=== PATIENT | female | born 1960 | race Caucasian/White ===

== ENCOUNTER 2019-05-24 18:52 | Observation (INO) ==
[2019-05-24] MEDS ORDERED: SODIUM CHLORIDE 0.9% 500 ML IV SCH (19:00)
--- NOTE | 2019-05-24 19:04 | Emergency Department Note ---
History of Present Illness General Chief complaint: Arrhythmia/Palpitations Stated complaint: CARDIAC SX History of Present Illness The patient is a 58-year-old female who presented to the emergency department for an evaluation of chest discomfort and palpitations. The patient states that she has been having intermittent symptoms over the last 4 to 5 days which have included palpitations fast heart rate as well as skipping beats. The patient states he also had a fullness in her chest which she describes as more of a pressure. She denies that it was actual chest pain. The patient states that she was seen previously for this and was found to have PVCs. The patient denies having any shortness of breath at this time. She states that her symptoms are worsened at rest and sometimes improved with some exertion. She denies having any nausea or vomiting or recent illnesses. She states that she has had low potassium in the past but it was not associated with irregular heartbeat. The patient called her primary care physician and was set up with an appointment for this but was not seen by a provider today. She denies having any recent falls. She denies having any swelling in her legs. Home Medications Home Medications Medication Instructions Recorded Confirmed Type cyclobenzaprine 10 mg PO HS PRN 05/24/19 05/24/19 History fexofenadine [Aleta Allergy] 180 mg PO DAILY PRN 05/24/19 05/24/19 History fluticasone propionate 2 spray INTRANASAL DAILY PRN 05/24/19 05/24/19 History fluticasone propionate [Flovent 2 puff INHALATION BID PRN 05/24/19 05/24/19 History HFA] multivitamin 1 tab PO DAILY 05/24/19 05/24/19 History potassium chloride [Klor-Con M20] 20 meq PO DAILY 05/24/19 05/24/19 History tramadol 50 mg PO BID PRN 05/24/19 05/24/19 History triamterene-hydrochlorothiazid 0.5 tab PO DAILY 05/24/19 05/24/19 History Allergies Allergy/AdvReac Type Severity Reaction Status Date / Time No Known Allergies Allergy Verified 05/24/19 19:41 Past Med/Surg History Medical History Hypertension Surgical History History of carpal tunnel surgery History of delivery Status post trigger finger release Family History Other No significant family history Social History current occupational status: employed Feels Safe at Home: Yes Smoking Status: Never smoker Hx Alcohol Use: Yes Review of Systems See HPI for pertinent positives & negatives. and A total of 10 systems reviewed and were otherwise negative Additional history was obtained from the prehospital personnel. Physical Exam Vital Signs Vital Signs - 24 hr 05/24/19 18:55 05/24/19 18:57 05/24/19 19:05 Temperature 36.9 C Temperature Source Oral Pulse Rate 84 90 86 Pulse Rate from SpO2 Sensor 78 80 Respiratory Rate 15 17 20 Respiratory Effort / Characteristics Non-Labored Spontaneous Respiratory Depth Normal Blood Pressure 173/101 H 173/101 H 134/84 Blood Pressure Mean 127 125 91 Blood Pressure Position Sitting Pulse Oximetry 96 98 94 Oxygen Delivery Method Room Air Sepsis Recent Fever Within 48 Hours No Sepsis Action Taken by Nursing No Action Required 05/24/19 19:30 05/24/19 20:00 Temperature Temperature Source Pulse Rate 75 77 Pulse Rate from SpO2 Sensor 74 74 Respiratory Rate 14 15 Respiratory Effort / Characteristics Respiratory Depth Blood Pressure 124/69 142/68 H Blood Pressure Mean 90 86 Blood Pressure Position Pulse Oximetry 95 96 Oxygen Delivery Method Sepsis Recent Fever Within 48 Hours Sepsis Action Taken by Nursing GENERAL: Patient is awake alert in no acute distress patient is resting comfortably and showing no signs of anxiety EYES: The conjunctivae are clear. The pupils are round and reactive. EARS, NOSE, MOUTH AND THROAT: The nose is without any evidence of any deformity. Mucous membranes are moist. Tongue is midline. NECK: The neck is nontender and supple. RESPIRATORY: Normal respiratory effort is noted there is no evidence of wheezing rhonchi or rales CARDIOVASCULAR: Regular rate and rhythm noted there no murmurs rubs or gallops normal S1 normal S2. GASTROINTESTINAL: The abdomen is soft. Abdomen is nontender. MUSCULOSKELETAL/EXTREMITIES: There is no evidence of gross deformity full range of motion is noted in the hips and shoulders. SKIN: There is no obvious evidence of any rash. There are no petechiae, pallor or cyanosis noted. NEUROLOGIC: Patient is awake alert and oriented x3 strength is symmetric patellar reflexes are 2+ bilaterally Course Course 1830: I have reevaluated the patient and discussed her laboratory and radiographic studies. 1840: I discussed this case with the on-call [facility] hospitalist, Dr. Kruger. He is agreed to evaluate the patient in the emergency department for further management and disposition. Administered Medications Potassium Chloride (K Jero / Wtr) 10 meq in 100 mls @ 100 mls/hr IV Q1H HAILY Stop: 05/24/19 21:29 Last Admin: 05/24/19 19:52 Dose: 100 mls/hr Documented by: [id number] Discontinued Medications Sodium Chloride (Nss) 500 mls @ 999 mls/hr IV .Q31M HAILY Stop: 05/24/19 19:30 Last Infusion: 05/24/19 20:04 Dose: 0 mls/hr Documented by: [id number] Admin: 05/24/19 19:22 Dose: 999 mls/hr Documented by: [id number] Potassium Chloride (Klor-Con M10) 20 meq PO NOW STA Stop: 05/24/19 19:30 Last Admin: 05/24/19 19:52 Dose: 20 meq Documented by: [id number] Medical Decision Making Differential Diagnosis Etiologies such as ectopy, cardiac dysrhythmia, electrolyte abnormality, t hyroid dysfunction, pulmonary embolism, infection, gastrointestinal, as well as others were entertained. Medical Records Attestation: I reviewed the patient's medical records. Home Medications Current Medication List: was personally reviewed by me Laboratory Data Attestation: I reviewed the patient's lab results. Result diagrams: 05/24/19 18:28 05/24/19 18:28 Lab Results 05/24/19 05/24/19 05/24/19 Range/Units 18:28 18:28 19:04 WBC 7.62 (4.8-10.8) K/uL RBC 5.55 H (4.2-5.4) M/uL Hgb 17.0 H (12.0-16.0) g/dL Hct 48.3 H (37-47) % MCV 87.0 (80-100) fL MCH 30.6 (25-34) pg MCHC 35.2 (32-36) g/dL RDW Std Deviation 41.3 (36.4-46.3) fL RDW Coeff of Mukul 12.9 (11.5-14.5) % Plt Count 300 (130-400) K/uL MPV 11.3 H (7.4-10.4) fL Immature Gran % (Auto) 0.3 % Neut % (Auto) 54.1 % Lymph % (Auto) 35.2 % [place] % (Auto) 7.3 % Eos % (Auto) 2.8 % Baso % (Auto) 0.3 % Immature Gran # (Auto) 0.02 (0.00-0.02) K/uL Neut # (Auto) 4.13 (1.4-6.5) K/uL Lymph # (Auto) 2.68 (1.2-3.4) K/uL [place] # (Auto) 0.56 (0.11-0.59) K/uL Eos # (Auto) 0.21 (0-0.5) K/uL Baso # (Auto) 0.02 (0-0.2) K/uL PT (9.0-12.0) Seconds INR (0.9-1.1) APTT (21.0-31.0) Seconds PTT Ratio Sodium 136 (136-145) mmol/L Potassium 2.9 L (3.5-5.1) mmol/L Chloride 99 (98-107) mmol/L Carbon Dioxide 31 (21-32) mmol/L Anion Gap 6.0 (3-11) BUN 23 H (7-18) mg/dl Creatinine 1.17 (0.6-1.2) mg/dl Est Cr Clr Drug Dosing 66.0 ml/min Est GFR ( Amer) 60.3 Est GFR (Non-Af Amer) 52.0 BUN/Creatinine Ratio 19.6 (10-20) Glucose 111 H (70-99) mg/dl Calcium 10.3 H (8.5-10.1) mg/dl Magnesium 2.0 (1.8-2.4) mg/dl Total Bilirubin 0.5 (0.2-1) mg/dl AST 33 (15-37) U/L ALT 53 (12-78) U/L Alkaline Phosphatase 100 (45-117) U/L Troponin I < 0.015 (0-0.045) ng/ml Total Protein 9.1 H (6.4-8.2) gm/dl Albumin 4.4 (3.4-5.0) gm/dl Globulin 4.7 H (2.5-4.0) gm/dl Albumin/Globulin Ratio 0.9 (0.9-2) TSH 4.190 (0.300-4.500) uIu/ml Urine Color Yellow Urine Appearance Clear (Clear) Urine pH 6.0 (4.5-7.5) Ur Specific [place] 1.006 (1.000-1.030) Urine Protein Negative (Negative) Urine Glucose (UA) Negative (Negative) Urine Ketones Negative (Negative) Urine Blood Negative (Negative) Urine Nitrite Negative (Negative) Urine Bilirubin Negative (Negative) Urine Urobilinogen Negative (Negative) Ur Leukocyte Esterase 1+ H (Negative) Urine WBC (Auto) 5-10 H (0-5) /hpf Urine RBC (Auto) 0-4 (0-4) /hpf U Hyaline Cast (Auto) 1-5 (0-5) /lpf U Epithel Cells (Auto) >30 H (0-5) /lpf Urine Bacteria (Auto) Negative (Negative) 05/24/19 Range/Units 19:14 WBC (4.8-10.8) K/uL RBC (4.2-5.4) M/uL Hgb (12.0-16.0) g/dL Hct (37-47) % MCV (80-100) fL MCH (25-34) pg MCHC (32-36) g/dL RDW Std Deviation (36.4-46.3) fL RDW Coeff of Mukul (11.5-14.5) % Plt Count (130-400) K/uL MPV (7.4-10.4) fL Immature Gran % (Auto) % Neut % (Auto) % Lymph % (Auto) % [place] % (Auto) % Eos % (Auto) % Baso % (Auto) % Immature Gran # (Auto) (0.00-0.02) K/uL Neut # (Auto) (1.4-6.5) K/uL Lymph # (Auto) (1.2-3.4) K/uL [place] # (Auto) (0.11-0.59) K/uL Eos # (Auto) (0-0.5) K/uL Baso # (Auto) (0-0.2) K/uL PT 10.7 (9.0-12.0) Seconds INR 1.0 (0.9-1.1) APTT 27.0 (21.0-31.0) Seconds PTT Ratio 1.0 Sodium (136-145) mmol/L Potassium (3.5-5.1) mmol/L Chloride (98-107) mmol/L Carbon Dioxide (21-32) mmol/L Anion Gap (3-11) BUN (7-18) mg/dl Creatinine (0.6-1.2) mg/dl Est Cr Clr Drug Dosing ml/min Est GFR ( Amer) Est GFR (Non-Af Amer) BUN/Creatinine Ratio (10-20) Glucose (70-99) mg/dl Calcium (8.5-10.1) mg/dl Magnesium (1.8-2.4) mg/dl Total Bilirubin (0.2-1) mg/dl AST (15-37) U/L ALT (12-78) U/L Alkaline Phosphatase (45-117) U/L Troponin I (0-0.045) ng/ml Total Protein (6.4-8.2) gm/dl Albumin (3.4-5.0) gm/dl Globulin (2.5-4.0) gm/dl Albumin/Globulin Ratio (0.9-2) TSH (0.300-4.500) uIu/ml Urine Color Urine Appearance (Clear) Urine pH (4.5-7.5) Ur Specific [place] (1.000-1.030) Urine Protein (Negative) Urine Glucose (UA) (Negative) Urine Ketones (Negative) Urine Blood (Negative) Urine Nitrite (Negative) Urine Bilirubin (Negative) Urine Urobilinogen (Negative) Ur Leukocyte Esterase (Negative) Urine WBC (Auto) (0-5) /hpf Urine RBC (Auto) (0-4) /hpf U Hyaline Cast (Auto) (0-5) /lpf U Epithel Cells (Auto) (0-5) /lpf Urine Bacteria (Auto) (Negative) Imaging Data Radiologist's Impression: SINGLE VIEW CHEST CLINICAL HISTORY: Generalized weakness. FINDINGS: An AP, portable, upright chest radiograph is compared to study dated 10/05/2014. The examination is degraded by portable technique, large body habitu s, and patient rotation. The cardiomediastinal silhouette is unremarkable. There is mild elevation of right hemidiaphragm and bibasilar atelectasis. No airspace consolidation or large pleural effusion is identified. No pneumothorax is seen. The skeletal structures are osteopenic. The bony thorax is grossly intact. IMPRESSION: No active disease in the chest. ACT 112: Negative or not required by law. Electronically signed by: Vernon Galvan M.D. 05/24/2019 7:17 PM ECG Data Attestation: I personally reviewed and interpreted this ECG as follows: Indication: + palpitations Rate (beats per minute): 85 Additional Comments: EKG revealed normal sinus rhythm 85 bpm. PVCs were noted. There was diffuse T wave flattening noted. Inferior and lateral ST depressions are noted. No previous EKG was available. Blood Pressure Blood Pressure Findings: Elevated blood pressure Blood Pressure Disposition: further management by hospitalist MDM Narrative The patient is a 58-year-old female who presented to the emergency department by ambulance for an evaluation of chest discomfort and palpitations. The patient states that she has been having palpitations over the last few days. She started having dizziness and palpitations while she was driving. The patient had to pull out operator her car because of such severe symptoms and then called 911. The patient arrived via ambulance. She was noted to have PVCs which is not new for her. She also states that she had racing heartbeat at one point. She also complains of chest pressure but not specifically chest pain. The patient did appear to have abnormalities on her EKG which could be related to ischemia but also could be related to the degree of hypokalemia noted on her laboratory studies. The patient was treated with IV fluids as well as IV potassium. She was also given oral potassium replacement. She was reevaluated multiple times. She was still having some degree of discomfort. She was treated with aspirin in the emergency department. Because of her findings I discussed her case with the on-call [facility] hospitalist group. They have agreed to evaluate the patient in the emergency department for further management and disposition. Impression & Plan Chest pain, Palpitations, Ventricular premature beats, Hypokalemia Discharge Plan Visit Data Chief Complaint: Arrhythmia/Palpitations Stated Complaint: CARDIAC SX ED Provider: Mario Glass Discharge Problem: Chest pain, Palpitations, Ventricular premature beats, Hypokalemia Patient Disposition: Being Evaluated by Hospitalist Condition: Good Forms Stand Alone Forms: [facility] [employer] Prescriptions Prescriptions: No Action cyclobenzaprine 10 mg tablet 10 mg PO HS PRN (Reason: Muscle Spasm) RF: 0 fexofenadine [Aleta Allergy] 180 mg Tablet 180 mg PO DAILY PRN (Reason: Allergy Symptoms) RF: 0 tramadol 50 mg tablet 50 mg PO BID PRN (Reason: Pain) RF: 0 triamterene-hydrochlorothiazid 75-50 mg tablet 0.5 tab PO DAILY RF: 0 fluticasone propionate 50 mcg/actuation spray,suspension 2 spray INTRANASAL DAILY PRN (Reason: Allergy Symptoms) RF: 0 Flovent HFA 110 mcg/actuation HFA aerosol inhaler 2 puff inhalation BID PRN (Reason: Shortness Of Breath) RF: 0 multivitamin Tablet,Chewable 1 tab PO DAILY RF: 0 potassium chloride [Klor-Con M20] 20 mEq tablet,ER particles/crystals 20 meq PO DAILY RF: 0 Referrals Referrals: Giana Tse MD [Primary Care Provider] -
[2019-05-24 19:09] LABS: Red Blood Count 5.55 M/uL (4.2-5.4); White Blood Count 7.62 K/uL (4.8-10.8)
[2019-05-24 19:10] LABS: Basophils # (auto) 0.02 K/uL (0-0.2); Basophils % (auto) 0.3 %; Eosinophils # (auto) 0.21 K/uL (0-0.5); Eosinophils % (auto) 2.8 %; Hematocrit (blood only) 48.3 % (37-47); Immature Granulocytes # (auto) 0.02 K/uL (0.00-0.02); Immature Granulocytes % (auto) 0.3 %; Lymphocytes # (auto) 2.68 K/uL (1.2-3.4); Lymphocytes % (auto) 35.2 %; Mean Corpuscular Hemoglobin 30.6 pg (25-34); Mean Corpuscular Hgb Conc 35.2 g/dL (32-36); Mean Platelet Volume 11.3 fL (7.4-10.4); Monocytes # (auto) 0.56 K/uL (0.11-0.59); Monocytes % (auto) 7.3 %; Neutrophils # (auto) 4.13 K/uL (1.4-6.5); Neutrophils % (auto) 54.1 %; Platelet Count 300 K/uL (130-400); RDW Coefficient of Variation 12.9 % (11.5-14.5); RDW Standard Deviation 41.3 fL (36.4-46.3)
--- NOTE | 2019-05-24 19:18 | XRay Report ---
SINGLE VIEW CHEST CLINICAL HISTORY: Generalized weakness. FINDINGS: An AP, portable, upright chest radiograph is compared to study dated 10/05/2014. The examina tion is degraded by portable technique, large body habitus, and patient rotation. The cardiomediastin al silhouette is unremarkable. There is mild elevation of right hemidiaphragm and bibasilar atelectas is. No airspace consolidation or large pleural effusion is identified. No pneumothorax is seen. The s keletal structures are osteopenic. The bony thorax is grossly intact. IMPRESSION: No active disease in the chest. ACT 112: Negative or not required by law. Electronically signed by: Vernon Galvan M.D. 05/24/2019 7:17 PM
[2019-05-24 19:25] LABS: Alanine Aminotransferase 53 U/L (12-78); Albumin Level 4.4 gm/dl (3.4-5.0); Aspartate Aminotransferase 33 U/L (15-37); BUN Creatinine Ratio 19.6 (10-20); Blood Urea Nitrogen 23 mg/dl (7-18); Calcium 10.3 mg/dl (8.5-10.1); Carbon Dioxide 31 mmol/L (21-32); Chloride 99 mmol/L (98-107); Est GFR (African American) 60.3; Glucose 111 mg/dl (70-99); Potassium 2.9 mmol/L (3.5-5.1); Sodium 136 mmol/L (136-145)
[2019-05-24] MEDS ORDERED: POTASSIUM CHLORIDE 10 MEQ TABCR PO STA (19:29)
[2019-05-24 19:36] LABS: Albumin Globulin Ratio 0.9 (0.9-2); Alkaline Phosphatase 100 U/L (45-117); Bilirubin,Total 0.5 mg/dl (0.2-1); Globulin 4.7 gm/dl (2.5-4.0); Total Protein 9.1 gm/dl (6.4-8.2); Troponin I < 0.015 ng/ml (0-0.045)
[2019-05-24 19:37] LABS: Prothrombin Time 10.7 Seconds (9.0-12.0)
[2019-05-24 19:45] LABS: Appearance Urine Clear (Clear); Bacteria Urine Automated Negative (Negative); Bilirubin Urine Negative (Negative); Blood Urine Negative (Negative); Color Urine Yellow; Epithelial Cell Urine Auto >30 /lpf (0-5); Glucose Urine UA Negative (Negative); Ketones Urine Negative (Negative); Leukocyte Esterase Urine 1+ (Negative); Nitrite Urine Negative (Negative); Protein Urine Negative (Negative); RBC Urine Automated 0-4 /hpf (0-4); Specific Gravity Urine 1.006 (1.000-1.030); Urobilinogen Urine Negative (Negative)
[2019-05-24] MEDS: POTASSIUM CHLORIDE / WTR 10 MEQ/100 ML PLCT IV SCH ×2 (19:52→23:46)
[2019-05-24] MEDS ORDERED: POTASSIUM CHLORIDE 20 MEQ TABCR PO STA ×2 (20:29→23:02)
[2019-05-24] MEDS ORDERED: METOPROLOL TARTRATE 25 MG TAB PO STA (20:29)
[2019-05-24] MEDS ORDERED: ASPIRIN CHEW 324 MG ONE (20:46)
[2019-05-24] MEDS ORDERED: ASPIRIN CHEW 324 MG PO STA (20:47)
[2019-05-24 21:05] LABS: D Dimer 270 ug/L FEU (0-500)
--- NOTE | 2019-05-24 21:37 | History & Physical Report ---
Date of Service May 24, 2019 Assessment & Plan (1) Palpitations: Secondary to symptomatic PVCs Multifactorial : Hypokalemia, mild dehydration secondary to poor p.o. intake Anxiety hypertension, stable prediabetes, recent outpatient hemoglobin A1c of 6.11 Jul 2018 Polycythemia, hx snoring rule out NURIA Observation PCU Initiate beta-justo to suppress PVCs Replace potassium, IVF, hold home diuretics for now Anxiolytic as needed TTE, Cardiology consult RE palpitations Update hemoglobin A1c Outpatient sleep study DVT prophylaxis. Lovenox subcu Full code Text document was generated using [employer] voice recognition software. It may contain grammatical or spelling errors. Kindly contact undersigned for clarification of any documentation item in question. History of Present Illness Chief Complaint: Palpitations Primary Care Provider: Giana Marsh MD History obtained from patient, family, and records. Medical history significant for hypertension, bronchial asthma, prediabetes, GERD. The last 5 days patient noted intermittent palpitations, skipped beats with some chest fullness/shortness of breath which patient attributes to anxiety. No unusual cough symptoms. Appetite not so good. A lot of personal stressors. Denies inordinate caffeine intake. Medical History as above Surgical History : Carpal tunnel surgery, section, SAHIL, shoulder surgery Family History : Cervical/ovarian cancer Personal/Social history : Non-smoker, no EtOH intake, [employer] employee Allergies Allergy/AdvReac Type Severity Reaction Status Date / Time No Known Allergies Allergy Verified 05/24/19 19:41 Home Medications Home Medications Medication Instructions Recorded Confirmed Type cyclobenzaprine 10 mg PO HS PRN 05/24/19 05/24/19 History fexofenadine [Aleta Allergy] 180 mg PO DAILY PRN 05/24/19 05/24/19 History fluticasone propionate 2 spray INTRANASAL DAILY PRN 05/24/19 05/24/19 History fluticasone propionate [Flovent 2 puff INHALATION BID PRN 05/24/19 05/24/19 History HFA] multivitamin 1 tab PO DAILY 05/24/19 05/24/19 History potassium chloride [Klor-Con M20] 20 meq PO DAILY 05/24/19 05/24/19 History tramadol 50 mg PO BID PRN 05/24/19 05/24/19 History triamterene-hydrochlorothiazid 0.5 tab PO DAILY 05/24/19 05/24/19 History Past Med/Surg History Medical History Hypertension Surgical History History of carpal tunnel surgery History of delivery Status post trigger finger release Family History Other No significant family history Social History Preferred Language: Monegasque Communication Ability: Effective Esl Tutor Required: No Beliefs That Will Affect Care: None Current Living Situation: Spouse current occupational status: employed Feels Safe at Home: Yes Smoking Status: Never smoker Hx Alcohol Use: No Hx Substance Use: No Review of Systems Review of Systems: As per HPI, all 10 systems reviewed; snoring without wit nessed apneic episodes as per patient, does not feel rested after 8 hours of sleep at night; all other ROS negative Physical Exam Physical Exam: GENERAL: Comfortable, obese, pleasant, occasionally tearful, no respiratory distress SKIN: Normal color, warm HEENT: [place] palpebral conjunctivae, no ptosis, dry buccal mucosa NECK : Supple, short neck, no tenderness CHEST : CTA, no tenderness HEART : RRR, no obvious murmurs ABDOMEN: Some distention, nontender EXTREMITIES : Minimal LE swelling, no LE tenderness, no other conspicuous deformities noted NEUROLOGIC : Coherent, no facial asymmetry, no other gross focality Results & Data Vital Signs (Past 12 Hours) Vital Signs Temp Pulse Resp BP Pulse Ox 05/24/19 20:31 78 15 134/83 97 05/24/19 20:00 77 15 142/68 H 96 05/24/19 19:30 75 14 124/69 95 05/24/19 19:05 86 20 134/84 94 05/24/19 18:57 36.9 C 90 17 173/101 H 98 05/24/19 18:55 84 15 173/101 H 96 Laboratory Results Laboratory Results WBC 7.62 K/uL (4.8-10.8) 05/24/19 18:28 RBC 5.55 M/uL (4.2-5.4) H 05/24/19 18:28 Hgb 17.0 g/dL (12.0-16.0) H 05/24/19 18: Hct 48.3 % (37-47) H 05/24/19 18: MCV 87.0 fL (80-100) 05/24/19 18: MCH 30.6 pg (25-34) 05/24/19 18: MCHC 35.2 g/dL (32-36) 05/24/19: RDW Std Deviation 41.3 fL (36.4-46.3) 05/24/19: RDW Coeff of Mukul 12.9 % (11.5-14.5) 05/24/19: Plt Count 300 K/uL (130-400) 05/24/19 MPV 11.3 fL (7.4-10.4) H 05/24/19: Immature Gran % (Auto) 0.3 % 05/24/19 18: Neut % (Auto) 54.1 % 05/24/19: Lymph % (Auto) 35.2 % 05/24/19 18: [place] % (Auto) 7.3 % 05/24/19: Eos % (Auto) 2.8 % 05/24/19: Baso % (Auto) 0.3 % 05/24/19: Immature Gran # (Auto) 0.02 K/uL (0.00-0.02) 05/24/19: Neut # (Auto) 4.13 K/uL (1.4-6.5) 05/24/19: Lymph # (Auto) 2.68 K/uL (1.2-3.4) 05/24/19: [place] # (Auto) 0.56 K/uL (0.11-0.59) 05/24/19: Eos # (Auto) 0.21 K/uL (0-0.5) 05/24/19: Baso # (Auto) 0.02 K/uL (0-0.2) 05/24/19 18: PT 10.7 Seconds (9.0-12.0) 05/24/19 19:14 INR 1.0 (0.9-1.1) 05/24/19 19:14 APTT 27.0 Seconds (21.0-31.0) 05/24/19 19:14 PTT Ratio 1.0 05/24/19 19:14 D-Dimer 270 ug/L FEU (0-500) 05/24/19 19:14 Sodium 136 mmol/L (136-145) 05/24/19 18:28 Potassium 2.9 mmol/L (3.5-5.1) L 05/24/19 18:28 Chloride 99 mmol/L (98-107) 05/24/19 18:28 Carbon Dioxide 31 mmol/L (21-32) 05/24/19 18:28 Anion Gap 6.0 (3-11) 05/24/19 18:28 BUN 23 mg/dl (7-18) H 05/24/19 18:28 Creatinine 1.17 mg/dl (0.6-1.2) 05/24/19 18:28 Est Cr Clr Drug Dosing 66.0 ml/min 05/24/19 18:28 Est GFR ( Amer) 60.3 05/24/19 18:28 Est GFR (Non-Af Amer) 52.0 05/24/19 18:28 BUN/Creatinine Ratio 19.6 (10-20) 05/24/19 18:28 Glucose 111 mg/dl (70-99) H 05/24/19 18:28 Calcium 10.3 mg/dl (8.5-10.1) H 05/24/19 18:28 Magnesium 2.0 mg/dl (1.8-2.4) 05/24/19 18:28 Total Bilirubin 0.5 mg/dl (0.2-1) 05/24/19 18:28 AST 33 U/L (15-37) 05/24/19 18:28 ALT 53 U/L (12-78) 05/24/19 18:28 Alkaline Phosphatase 100 U/L (45-117) 05/24/19 18:28 Troponin I < 0.015 ng/ml (0-0.045) 05/24/19 18:28 Total Protein 9.1 gm/dl (6.4-8.2) H 05/24/19 18:28 Albumin 4.4 gm/dl (3.4-5.0) 05/24/19 18:28 Globulin 4.7 gm/dl (2.5-4.0) H 05/24/19 18:28 Albumin/Globulin Ratio 0.9 (0.9-2) 05/24/19 18:28 TSH 4.190 uIu/ml (0.300-4.500) 05/24/19 18:28 Urine Color Yellow 05/24/19 19:04 Urine Appearance Clear (Clear) 05/24/19 19:04 Urine pH 6.0 (4.5-7.5) 05/24/19 19:04 Ur Specific [place] 1.006 (1.000-1.030) 05/24/19 19:04 Urine Protein Negative (Negative) 05/24/19 19:04 Urine Glucose (UA) Negative (Negative) 05/24/19 19:04 Urine Ketones Negative (Negative) 05/24/19 19:04 Urine Blood Negative (Negative) 05/24/19 19:04 Urine Nitrite Negative (Negative) 05/24/19 19:04 Urine Bilirubin Negative (Negative) 05/24/19 19:04 Urine Urobilinogen Negative (Negative) 05/24/19 19:04 Ur Leukocyte Esterase 1+ (Negative) H 05/24/19 19:04 Urine WBC (Auto) 5-10 /hpf (0-5) H 05/24/19 19:04 Urine RBC (Auto) 0-4 /hpf (0-4) 05/24/19 19:04 U Hyaline Cast (Auto) 1-5 /lpf (0-5) 05/24/19 19:04 U Epithel Cells (Auto) >30 /lpf (0-5) H 05/24/19 19:04 Urine Bacteria (Auto) Negative (Negative) 05/24/19 19:04 Diagnostic Findings Chest x-ray : No active disease EKG as per my interpretation : Rate 85, NSR, LAD, LAFB, diffuse T wave abnormalities, PVCs
[2019-05-24] MEDS ORDERED: LORazepam 0.25 MG/0.5 ML VIAL IV PRN (23:02)
[2019-05-24] MEDS ORDERED: ACETAMINOPHEN 325 MG TAB PO PRN (23:02)
[2019-05-24] MEDS ORDERED: POTASSIUM CHLORIDE 40 MEQ in SODIUM CHLORIDE 0.9% 1000ML 1,000 ML IV SCH (23:02)
[2019-05-24] MEDS ORDERED: PROMETHAZINE HCL 12.5 MG in SODIUM CHLORIDE 0.9% 50 ML IV PRN (23:02)
[2019-05-24] MEDS ORDERED: NITROGLYCERIN SL 0.4 MG/TAB TAB SL PRN (23:02)
[2019-05-24] MEDS ORDERED: TRAMADOL HCL 50 MG TABLET PO PRN (23:02)
[2019-05-25 05:56] LABS: Basophils # (auto) 0.03 K/uL (0-0.2); Basophils % (auto) 0.4 %; Eosinophils # (auto) 0.19 K/uL (0-0.5); Eosinophils % (auto) 2.7 %; Hemoglobin 14.5 g/dL (12.0-16.0); Immature Granulocytes # (auto) 0.01 K/uL (0.00-0.02); Immature Granulocytes % (auto) 0.1 %; Lymphocytes % (auto) 37.9 %; Mean Corpuscular Hemoglobin 29.7 pg (25-34); Mean Corpuscular Hgb Conc 33.7 g/dL (32-36); Mean Corpuscular Volume 88.1 fL (80-100); Mean Platelet Volume 11.2 fL (7.4-10.4); Monocytes # (auto) 0.57 K/uL (0.11-0.59); Neutrophils # (auto) 3.63 K/uL (1.4-6.5); Neutrophils % (auto) 50.9 %; Platelet Count 266 K/uL (130-400); RDW Coefficient of Variation 13.1 % (11.5-14.5); RDW Standard Deviation 41.9 fL (36.4-46.3); Red Blood Count 4.88 M/uL (4.2-5.4); White Blood Count 7.13 K/uL (4.8-10.8)
[2019-05-25 06:27] LABS: Estimated Average Glucose 134 mg/dl; Hemoglobin A1C 6.3 % (4.5-5.6)
[2019-05-25 06:37] LABS: Creatinine Clr Calc Pharmacy 81.6 ml/min; Est GFR (African American) 76.6; Est GFR (Non-African American) 66.1; Potassium 3.6 mmol/L (3.5-5.1)
[2019-05-25] MEDS ORDERED: PERFLUTREN LIPID MICROSPHERE (DEFINITY) IV ONE (07:03)
[2019-05-25] MEDS ORDERED: METOPROLOL TARTRATE 25 MG TAB PO SCH (09:00)
[2019-05-25] MEDS ORDERED: METOPROLOL SUCC 25MG EXT REL TAB PO SCH ×3 (09:00→11:30)
[2019-05-25] MEDS ORDERED: MULTIVITAMIN TAB PO SCH (09:00)
[2019-05-25] MEDS ORDERED: ENOXAPARIN INJ 40 MG/0.4 ML SYR SQ SCH (09:00)
--- NOTE | 2019-05-25 11:36 | Hospitalist Progress Note ---
Date of Service May 25, 2019 Assessment & Plan (1) Palpitations: Patient presented with intermittent episode of palpitation, dizzy spell lightheadedness for last few days - EKG in ER showed frequents PVC Patient's presentation with palpitation possibly Secondary to symptomatic PVCs Multifactorial : Hypokalemia, mild dehydration secondary to poor p.o. intake patient reports of poor p.o. intake last 2 to 3 days secondary to GI symptoms of nausea Patient was given potassium supplement, IV fluids overnight Telemetry shows sinus bradycardia Patient reports resolution of her symptom Was started with low-dose beta-justo for PVC, kept on hold as baseline heart rate is at 5060s 2D echo 05/25/2019: On complete 2D echo was performed Mild concentric left ventricular hypertrophy. The left ventricular wall motion is normal. Left ventricular ejection fraction 55-60% Grade 1 diastolic dysfunction No significant valvular heart disease seen and examined at bedside, Patient denies of any prior history of cardiac arrhythmia, no history of AL, no family history of premature coronary artery disease Twelve-lead EKG this morning showed normal sinus rhythm, PVC noted Cardiology eval requested Possible discharge home later today after evaluated by cardiology Text document was generated using [employer] voice recognition software. It may contain grammatical or spelling errors. Kindly contact undersigned for clarification of any documentation item in question. Admission and Anticipated Discharge Date Admission Date: May 24, 2019 Subjective Patient reports of feeling much better today no Complain of dizzy spell or lightheadedness since admission Does not feel any palpitation, no shortness of breath at rest or with exertion Review of Systems Review of Systems: All systems reviewed & are unremarkable except as noted in HPI & below Respiratory: no cough, no dyspnea and no dyspnea on exertion Cardiovascular: no palpitations, no lightheadedness and no syncope Physical Exam Constitutional: WD/WN, vitals as above no acute distress Eyes: PERRL, conjunctivae normal, anicteric sclerae ENMT: external ear and nose normal, oropharynx normal Neck: trachea midline, no thyromegaly Respiratory: normal respiratory effort, lungs clear to auscultation Cardiovascular: RRR, no murmur, no edema Gastrointestinal (Abdomen): normal bowel sounds, soft, nontender, no hepatosplenomegaly Musculoskeletal: no cyanosis or clubbing, extremities motor strength 5/5 Skin: no rashes, warm and dry Neurologic: PERRL, EOMI, accommodation nl, no face palsy, no dysarthria Psychiatric: A+Ox3, euthymic affect Results & Data ([facility]) Vital Signs (Past 12 Hours) Vital Signs Temp Pulse Resp BP Pulse Ox 05/25/19 11:00 36.5 C 60 16 127/75 95 05/25/19 07:39 36.3 C L 60 18 114/74 96 05/25/19 03:31 36.7 C 59 L 18 134/65 96
--- NOTE | 2019-05-25 11:37 | Cardiology Consultation ---
Date of Consultation May 25, 2019 Assessment & Plan (1) Ventricular premature beats: I do not think the patient has any symptoms suggestive angina. EKG performed this morning at 943 revealed sinus bradycardia 59 bpm With resolution of the previous PVCs noted on the previous tracing at 1857 yesterday. The nonspecific diffuse T wave flattening noted on the present EKG has improved with normalization of her electrolytes. She received a dose of metoprolol tartrate overnight last night, the metoprolol succinate tentatively plan for this morning have been held due to bradycardia in the 50s. Currently she is in the 60s, and I have therefore placed her on metoprolol succinate 25 mg daily with first dose to start now. The resting echocardiogram had been performed earlier today which was reviewed independently by the undersigned revealing mild concentric left ventricular hypertrophy, normal resting wall motion, normal LVEF in the range of 55 to 60%, grade 1 diastolic dysfunction and no significant valvular heart disease. At present, I recommend discharge on metoprolol succinate 25 mg by mouth daily. Perhaps it would be most prudent to discharge her on her prior to hospital dose of triamterene/hydrochlorothiazide, and increase the dose of her potassium chloride supplementation from 20 mg daily to 20 mg 2 times per day with plans for follow-up with PCP and repeat chemistry panel within 1 week. If her blood pressure remains well controlled, future considerations include r eplacing transferring hydrochlorothiazide and her potassium supplement with treatment with spironolactone, but I think it is prudent to make as little changes as possible at this time. She can follow-up on an as-needed basis with cardiology should the patient her PCP elect to see me or my partners in the future. History of Present Illness Attending Physician: Luz Valentine MD History of Present Illness Dorys Magaña is a 58 year old female seen in cardiology consultation per the request of Dr Nazario for the evaluation of palpitations. Does not follow with a smutter previously. She has a history of hypertension for which she is on triamterene/HCTZ. She notes that since the weekend, approximately 2 or 3 days, she had been noted feeling generalized illness, with lightheadedness, and an occasional sensation of "skipped "beats in her heart. 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 She felt progressively worse from a palpitation standpoint, prompting assessment in the emergency department. Thus far she was found to have negative troponin readings x2. Her TSH screen was normal. Her potassium had been low at 2.9, and she is received supplementation as well as IV fluids with repeat reading of 3.6 mmol/L this morning. Allergies Allergy/AdvReac Type Severity Reaction Status Date / Time No Known Allergies Allergy Verified 05/24/19 19:41 Home Medications Home Medications Medication Instructions Recorded Confirmed Type cyclobenzaprine 10 mg PO HS PRN 05/24/19 05/24/19 History fexofenadine [Aleta Allergy] 180 mg PO DAILY PRN 05/24/19 05/24/19 History fluticasone propionate 2 spray INTRANASAL DAILY PRN 05/24/19 05/24/19 History fluticasone propionate [Flovent 2 puff INHALATION BID PRN 05/24/19 05/24/19 History HFA] multivitamin 1 tab PO DAILY 05/24/19 05/24/19 History potassium chloride [Klor-Con M20] 20 meq PO DAILY 05/24/19 05/24/19 History tramadol 50 mg PO BID PRN 05/24/19 05/24/19 History triamterene-hydrochlorothiazid 0.5 tab PO DAILY 05/24/19 05/24/19 History Patient History Medical History Hypertension Surgical History History of carpal tunnel surgery History of delivery Status post trigger finger release Family History Other No significant family history Social History Preferred Language: Lithuanian 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 Beliefs That Will Affect Care: None Current Living Situation: Spouse current occupational status: employed Feels Safe at Home: Yes Smoking Status: Never smoker Hx Alcohol Use: No Hx Substance Use: No Review of Systems Review of Systems: All systems reviewed & are unremarkable except as noted in HPI & below Physical Exam Physical Exam: Temp Pulse Resp BP Pulse Ox 36.5 C 60 16 127/75 95 05/25/19 11:00 05/25/19 11:00 05/25/19 11:00 05/25/19 11:00 05/25/19 11:00 Constitutional: WD/WN, vitals as above Respiratory: normal respiratory effort, lungs clear to auscultation Cardiovascular: RRR, no murmur, no edema Gastrointestinal (Abdomen): normal bowel sounds, soft, nontender, no hepatosplenomegaly Neurologic: PERRL, EOMI, accommodation nl, no face palsy, no dysarthria Results & Data ([facility]) Vital Signs (Past 12 Hours) Vital Signs Temp Pulse Resp BP Pulse Ox 05/25/19 11:00 36.5 C 60 16 127/75 95 05/25/19 07:39 36.3 C L 60 18 114/74 96 05/25/19 03:31 36.7 C 59 L 18 134/65 96 Laboratory Results Cardiac Enzymes 05/24/19 05/24/19 Range/Units 18:28 23:13 AST 33 (15-37) U/L Troponin I < 0.015 < 0.015 (0-0.045) ng/ml Coagulation 05/24/19 Range/Units 19:14 PT 10.7 (9.0-12.0) Seconds APTT 27.0 (21.0-31.0) Seconds CBC 05/24/19 05/25/19 Range/Units 18:28 05:26 WBC 7.62 7.13 (4.8-10.8) K/uL RBC 5.55 H 4.88 (4.2-5.4) M/uL Hgb 17.0 H 14.5 (12.0-16.0) g/dL Hct 48.3 H 43.0 (37-47) % Plt Count 300 266 (130-400) K/uL Neut # (Auto) 4.13 3.63 (1.4-6.5) K/uL Lymph # (Auto) 2.68 2.70 (1.2-3.4) K/uL [place] # (Auto) 0.56 0.57 (0.11-0.59) K/uL Eos # (Auto) 0.21 0.19 (0-0.5) K/uL Baso # (Auto) 0.02 0.03 (0-0.2) K/uL Comprehensive Metabolic Panel 05/24/19 05/25/19 Range/Units 18:28 05:26 Sodium 136 140 (136-145) mmol/L Potassium 2.9 L 3.6 D (3.5-5.1) mmol/L Chloride 99 107 (98-107) mmol/L Carbon Dioxide 31 28 (21-32) mmol/L BUN 23 H 19 H (7-18) mg/dl Creatinine 1.17 0.96 (0.6-1.2) mg/dl Glucose 111 H 108 H (70-99) mg/dl Calcium 10.3 H 9.0 (8.5-10.1) mg/dl AST 33 (15-37) U/L ALT 53 (12-78) U/L Alkaline Phosphatase 100 (45-117) U/L Total Protein 9.1 H (6.4-8.2) gm/dl Albumin 4.4 (3.4-5.0) gm/dl Intake and Output 05/24/19 05/25/19 05/25/19 22:59 06:59 14:59 Intake Total 500 / 800 300 / 800 Output Total 350 / 350 Balance 500 / 450 -50 / 450 Intake: IV 500 / 600 100 / 600 K RIDER / WTR 10 meq In 100 ml 100 / 100 @ 100 mls/hr IV Q1H HAILY Rx#: [id number] Nss 500 ml @ 999 mls/hr IV . 500 / 500 Q31M HAILY Rx#:[id number] Oral 200 / 200 Output: Urine 350 / 350 Other: Weight 112.7 kg 115.4 kg
--- NOTE | 2019-05-25 11:51 | Discharge Summary ---
Date of Service May 25, 2019 Admission HPI Per Admitting Provider History obtained from patient, family, and records. Medical history significant for hypertension, bronchial asthma, prediabetes, GERD. The last 5 days patient noted intermittent palpitations, skipped beats with some chest fullness/shortness of breath which patient attributes to anxiety. No unusual cough symptoms. Appetite not so good. A lot of personal stressors. Denies inordinate caffeine intake. Medical History as above Surgical History : Carpal tunnel surgery, section, SAHIL, shoulder surgery Family History : Cervical/ovarian cancer Personal/Social history : Non-smoker, no EtOH intake, [employer] employee Principal Diagnosis Palpitations/dizzy spell, secondary to low potassium level,/ventricular premature beats Discharge Exam Constitutional WD/WN, vitals as above no acute distress Eyes PERRL, conjunctivae normal, anicteric sclerae ENMT external ear and nose normal, oropharynx normal Neck trachea midline, no thyromegaly Respiratory normal respiratory effort, lungs clear to auscultation Cardiovascular RRR, no murmur, no edema Gastrointestinal (Abdomen) normal bowel sounds, soft, nontender, no hepatosplenomegaly Musculoskeletal no cyanosis or clubbing, extremities motor strength 5/5 Skin no rashes, warm and dry Neurologic PERRL, EOMI, accommodation nl, no face palsy, no dysarthria Psychiatric A+Ox3, euthymic affect Discharge Data Allergies Allergy/AdvReac Type Severity Reaction Status Date / Time No Known Allergies Allergy Verified 05/24/19 19:41 Consultations 05/24/19 20:31 ED Decision to Admit Stat 05/24/19 23:02 Consult Cardiology Routine Hospital Course (1) Palpitations: Patient presented with intermittent episode of palpitation, dizzy spell lightheadedness for last few days - EKG in ER showed frequents PVC Patient's presentation with palpitation possibly Secondary to symptomatic PVCs Multifactorial : Hypokalemia, mild dehydration secondary to poor p.o. intake patient reports of poor p.o. intake last 2 to 3 days secondary to GI symptoms of nausea Patient was given potassium supplement, IV fluids overnight Telemetry shows sinus bradycardia Patient reports resolution of her symptom Was started with low-dose beta-justo for PVC, kept on hold as baseline heart rate is at 5060s 2D echo 05/25/2019: On complete 2D echo was performed Mild concentric left ventricular hypertrophy. The left ventricular wall motion is normal. Left ventricular ejection fraction 55-60% Grade 1 diastolic dysfunction No significant valvular heart disease seen and examined at bedside, Patient denies of any prior history of cardiac arrhythmia, no history of UT, no family history of premature coronary artery disease Twelve-lead EKG this morning showed normal sinus rhythm, PVC noted Cardiology eval requested-appreciate input, commence patient to be discharged on metoprolol succinate 25 mg daily Able to be discharged home today Hypertension: BP stable, patient is continued with outpatient antihypertensives triamterene/HCTZ Hypokalemia: Secondary to poor p.o. intake, patient is also on HCTZ diuretics Denies of any vomiting or diarrhea episode Potassium replaced Home p.o. potassium supplement increased as outlined above Text document was generated using [employer] voice recognition software. It may contain grammatical or spelling errors. Kindly contact undersigned for clarification of any documentation item in question. Total Time Total Time Spent Total Time Spent (In Minutes): Approximately 30 minutes Total Time Includes: Examination of the Patient, Discharge Planning, Medication Reconciliation and Communication With Other Providers Discharge Plan Discharge Items Patient Disposition: Home - Self-Care Reason For Visit: PALPITATIONS Discharge Diagnosis: Palpitations/dizzy spell, secondary to low potassium level,/ventricular premature beats Condition on Discharge: Good Activity: Resume your previous activity Non-emergency contact: Primary Care Provider Call non-emergency contact if: you have any medication questions Follow-up/Referrals: Giana Tse MD [Primary Care Provider] - 05/28/19 11:05 am (YOUR APT ON MAY 27, 2019 IS CANCELED. PLEASE SEE DR ASHOK VILLALPANDO ON MAY 28, 2019 AT 11:05 AM.) Diet: Regular Ambulatory Orders: Basic Metabolic Panel (Routine) Timeframe: 1 Week Location: Determined by Patient Ordered By: Luz Alva Attending Provider Instructions: Please drink plenty of fluids, Repeat lab work, basic metabolic panel in 1 week Hospital follow-up with family physician in 1 week New medication: Metoprolol succinate 25 mg 1 tablet daily Continue medication: Potassium chloride tablet increased to 1 tablet twice daily(from 1 tablet daily) Pending Studies at Discharge: No Stand-Alone Forms: My [employer]uation App, Smoking Cessation Medications and DC Order Prescriptions: New metoprolol succinate 25 mg Tablet Extended Release 24 Hr 25 mg PO QAM 30 Days Qty: 30 RF: 0 potassium chloride [Klor-Con M20] 20 mEq tablet,ER particles/crystals 20 meq PO BID 30 Days Qty: 60 RF: 0 Continued cyclobenzaprine 10 mg tablet 10 mg PO HS PRN (Reason: Muscle Spasm) RF: 0 fexofenadine [Aleta Allergy] 180 mg Tablet 180 mg PO DAILY PRN (Reason: Allergy Symptoms) RF: 0 tramadol 50 mg tablet 50 mg PO BID PRN (Reason: Pain) RF: 0 triamterene-hydrochlorothiazid 75-50 mg tablet 0.5 tab PO DAILY RF: 0 fluticasone propionate 50 mcg/actuation spray,suspension 2 spray INTRANASAL DAILY PRN (Reason: Allergy Symptoms) RF: 0 Flovent HFA 110 mcg/actuation HFA aerosol inhaler 2 puff inhalation BID PRN (Reason: Shortness Of Breath) RF: 0 multivitamin Tablet,Chewable 1 tab PO DAILY RF: 0 Discharge Orders: Discharge Order (Routine); Ordered 05/25/19 Ordered By: Luz Sherman/Other Patient Handouts: Prediabetes, A1C Admission Data Admit Date/Time: 05/24/19 21:40 Attending Provider: Luz Valentine Admit Provider: Jose Carlos Barrientos Primary Care Provider: Giana Tse Other Providers: Jose Carlos Barrientos ; Dnoato Bean Other Interventions: Discharge Summary Assessment (RN) Last Done: 05/25/19 12:03
--- NOTE | 2019-05-25 22:00 | Electrocardiogram Report ---
Test Reason : Blood Pressure : / mmHG Vent. Rate : 085 BPM Atrial Rate : 085 BPM P-R Int : 150 ms QRS Dur : 094 ms QT Int : 394 ms P-R-T Axes : 030 -34 -02 degrees QTc Int : 468 ms Sinus rhythm with occasional Premature ventricular complexes Left axis deviation Nonspecific ST and T wave abnormality Abnormal ECG No previous ECGs available Confirmed by Jann Edge ([id number]) on 05/25/2019 10:00:03 PM Referred By: REFERRED SELF Confirmed By:Jann Edge
--- NOTE | 2019-05-25 22:50 | Electrocardiogram Report ---
Test Reason : Blood Pressure : / mmHG Vent. Rate : 059 BPM Atrial Rate : 059 BPM P-R Int : 154 ms QRS Dur : 088 ms QT Int : 442 ms P-R-T Axes : 034 -14 002 degrees QTc Int : 437 ms Sinus bradycardia Otherwise normal ECG When compared with ECG of 24-MAY-2019 18:57, Premature ventricular complexes are no longer Present Confirmed by Jann Edge ([id number]) on 05/25/2019 10:50:35 PM Referred By: REFERRED SELF Confirmed By:Jann Edge
== END 2019-05-25 13:48 | disposition home or self-care (01) ==
LOC: ED 18:52 → 2S 18:52